=== PATIENT | female | born 2005 | race African-American/Black ===

== ENCOUNTER 2025-05-22 17:54 | Emergency (ER) | payer MEDICAID ==
[~2025-05-22] VITALS: Ht 165.1 cm; Wt 69.0 kg
[2025-05-22 17:59] VITALS: O2SAT 99
[2025-05-22] MEDS: TETANUS, DIPHTHERIA, PERTUSSIS VAC/PF 0.5ML (>10YR OLD) IM ONE (18:11)
[2025-05-22] MEDS: LIDOCAINE HCL 1% 20ML VIAL INFIL ONE (18:11)
[2025-05-22] MEDS: ACETAMINOPHEN 325MG TABLET PO ONE (18:12)
[2025-05-22 18:48] LABS: CLARITY URINE CLEAR (CLEAR); COLOR URINE YELLOW (YELLOW); GLUCOSE URINE NEGATIVE (NEGATIVE); KETONES URINE TRACE (NEGATIVE); LEUKOCYTE ESTERASE URINE NEGATIVE (NEGATIVE); NITRITE URINE NEGATIVE (NEGATIVE); OCCULT BLOOD URINE NEGATIVE (NEGATIVE); PH URINE 8.5 (4.5-8.0); PROTEIN URINE NEGATIVE (NEGATIVE); SPECIFIC GRAVITY URINE 1.015 (1.005-1.030); UROBILINOGEN URINE 0.2 E.U./dL (0.2-1.0)
[2025-05-22 19:04] LABS: *AMPHETAMINES SCREEN URINE NEGATIVE (NEGATIVE); *BARBITURATES SCREEN URINE NEGATIVE (NEGATIVE); *BENZODIAZEPINES SCREEN URINE NEGATIVE (NEGATIVE); *COCAINE SCREEN URINE NEGATIVE (NEGATIVE); CANNABINOID URINE SCREEN PRESUMPTIVE POSITIVE (NEGATIVE); ECSTASY MDMA SCREEN URINE NEGATIVE (NEGATIVE); METHADONE URINE SCREEN NEGATIVE (NEGATIVE); OPIATES URINE SCREEN NEGATIVE (NEGATIVE); PHENCYCLIDINE URINE SCREEN NEGATIVE (NEGATIVE)
[2025-05-22 19:32] LABS: BASOPHILS % 0.5 % (0.0-2.0); EOSINOPHILS % 0.5 % (0.0-5.0); HEMATOCRIT. 35.0 % (36.0-48.0); HEMOGLOBIN. 11.3 g/dL (12.0-16.0); LYMPHOCYTES % 21.2 % (20.0-50.0); MEAN PLATELET VOLUME 8.6 fl (7.4-10.4); MONOCYTES % 7.6 % (2.0-8.0); NEUTROPHILS % 70.2 % (40.0-76.0); PLATELET 319 x1000/uL (130-400); RED BLOOD CELL COUNT 4.37 mill/uL (4.2-5.4); RED CELL DISTRIBUTION WIDTH 16.0 % (11.6-14.6)
[2025-05-22 19:46] LABS: CREATININE 0.7 mg/dL (0.6-1.0); ETHANOL BLOOD < 10 mg/dL (<10); UREA NITROGEN BLOOD < 5 mg/dL (9-23)
[2025-05-22 19:53] LABS: HCG SCREEN NEGATIVE
[2025-05-23] MEDS: POTASSIUM CHLORIDE 20MEQ/PACKET PO ONE (00:01)
[2025-05-23] MEDS: DIPHENHYDRAMINE 25MG CAPSULE PO ONE (00:03)
[2025-05-23] MEDS: ARIPIPRAZOLE 5MG TABLET PO SCH (09:00)
[2025-05-23] MEDS: LORAZEPAM 1MG TABLET PO ONE (11:15)
[2025-05-23] MEDS: TRAZODONE HCL 50MG TABLET PO SCH (21:30)
[2025-05-24] MEDS: HYDROXYZINE 25MG TABLET PO PRN (09:50)
[2025-05-24 16:00] VITALS: BP 108/57; PULSE 79; RESP 16; TEMP 37; O2SAT 97
== END 2025-05-24 20:24 ==
LOC: ER 17:54
DX: S51.812A Laceration without foreign body of left forearm, initial encounter (principal); R45.851 Suicidal ideations; F25.9 Schizoaffective disorder, unspecified; F32.A Depression, unspecified; F41.9 Anxiety disorder, unspecified; Z20.822 Contact with and (suspected) exposure to COVID-19; X83.8XXA Intentional self-harm by other specified means, initial encounter; Y93.89 Activity, other specified; Y92.89 Other specified places as the place of occurrence of the external cause; Y99.8 Other external cause status
CPT/HCPCS: 80305; 80048; 81003; 80307; 80329; 80320; 84703; 85025; 36415; 90715; 12002; 90471; 99285; 87426; Q0163; J2003; Z7610 ×2; G0480

== ENCOUNTER 2025-06-06 09:16 | Emergency (ER) | payer MEDICAID ==
[~2025-06-06] VITALS: Ht 170.2 cm; Wt 92.0 kg
[2025-06-06 09:26] VITALS: O2SAT 98
[2025-06-06 09:42] VITALS: BP 121/64; PULSE 94; RESP 16; TEMP 36.6; O2SAT 99
== END 2025-06-06 09:45 | disposition home or self-care (01) ==
LOC: ER 09:16
DX: S61.512D Laceration without foreign body of left wrist, subsequent encounter (principal); F12.90 Cannabis use, unspecified, uncomplicated; X58.XXXD Exposure to other specified factors, subsequent encounter
CPT/HCPCS: 99281; Z7610